=== PATIENT | male | born 1950 | race Caucasian/White ===

== ENCOUNTER 2016-11-21 10:42 | Day surgery (SDC) | payer MEDICARE, OTHER ==
--- NOTE | 2016-11-21 06:22 | History and Physical Report ---
DATE: 11/21/2016. CHIEF COMPLAINT: This is a patient with a history of an intractable radiculitis. HISTORY OF PRESENT ILLNESS: He had a spinal cord stimulator implant on February 22, 2016. At that time everything appeared to be appropriate. Over the subsequent number of months, the patterns of stimulation shifted. Attempts at conservative reprogramming failed. X-ray confirmed possible lead migration. He is here for revision, repositioning, and possibly replacement of leads. PAST MEDICAL HISTORY: Headaches, asthmatic bronchitis, Parkinson's disease, reflux, degenerative arthritis. PAST SURGICAL HISTORY: Rotator cuff, temporomandibular joint, knee surgery, tendon repair, stimulator implant. MEDICATIONS ON ADMISSION: To be provided. ALLERGIES: Penicillin, Levaquin, morphine, Demerol. SOCIAL HISTORY: Caffeine. FAMILY HISTORY: Noncontributory. REVIEW OF SYSTEMS: The patient is appropriate and in no acute distress. The remainder of the systems review is noncontributory. PHYSICAL EXAMINATION: General: Height is 5 feet, 8 inches. Weight is 190 pounds. Vital Signs: Unavailable. HEENT: Within normal limits. Lungs: Clear. Heart: Regular rate and rhythm. Abdomen: Nontender. Musculoskeletal: The incisional sites posterior for the insertion of the leads and the generator are intact. Sensory sal are intact. Radicular pattern is midback and right lower extremity. Neurologic: Cranial nerves are intact. IMPRESSION: 1. INTRACTABLE LUMBAR RADICULITIS, ICD-10 CODE M54.16 AND M54.17. 2. SPINAL CORD STIMULATOR INTERNAL GENERATOR NONFUNCTIONAL. PLAN: The patient is here for revision of the system. This may require removal or simply replacing a lead or both leads. It was a complicated procedure previously. A dural puncture had been identified, and so we explained the potential risks and side effects including nerve root injury, spinal cord injury, dural puncture, and headache. We will consider this procedure to be outpatient, although an overnight stay will be evaluated. HAMMAD RENDON D.O. Date & Time JOB NUMBER: [id number] cc: Karen Dominguez
[~2016-11-21 10:42] MED LIST: ACETAMINOPHEN 1,000 MG/100 ML BTL IV ONE; CLINDAMYCIN 600MG/50ML PREMIX 600 MG/50 ML BAG IVPB ONE; FAMOTIDINE 20MG TABLET PO ONE; MECLIZINE 25 MG TABLET PO ONE; METOCLOPRAMIDE 10 MG TABLET PO ONE
[2016-11-21] MEDS ORDERED: LIDOCAINE 2% MDV (20MG/ML) 20ML VIAL IV ONE (14:00)
[2016-11-21] MEDS ORDERED: FENTANYL PF 100MCG/2ML VIAL IV ONE (14:00)
[2016-11-21] MEDS ORDERED: MIDAZOLAM HCL 2MG/2ML VIAL IV ONE (14:00)
[2016-11-21] MEDS ORDERED: PROPOFOL 10 MG/ML VIAL IV ONE (14:00)
[2016-11-21] MEDS ORDERED: CLINDAMYCIN 600MG/4 ML VIAL IVPB ONE (14:00)
[2016-11-21] MEDS ORDERED: LIDOCAINE 1% W/EPI 1:200,000 MPF 30ML SQ ONE (14:00)
[2016-11-21] MEDS ORDERED: HYDROMORPHONE HCL 2 MG/ML VIAL IV ONE (14:00)
[2016-11-21] MEDS ORDERED: BUPIVACAINE 0.5% W/EPI MPF 30 ML VIAL IVP ONE (14:00)
[2016-11-21] MEDS ORDERED: ACETAMINOPHEN 325 MG TAB PO PRN ×2 (15:17)
[2016-11-21] MEDS ORDERED: AL HYDROX/MAG HYDROX 30ML UD PO PRN (15:17)
[2016-11-21] MEDS ORDERED: HYDROCODONE/APAP 7.5/325MG TABLET PO PRN ×2 (15:17)
[2016-11-21] MEDS ORDERED: TEMAZEPAM 15 MG CAPSULE PO PRN ×2 (15:17)
[2016-11-21] MEDS ORDERED: METOCLOPRAMIDE 10 MG TABLET PO PRN (15:17)
[2016-11-21] MEDS ORDERED: HYDROMORPHONE HCL 1 MG/ML CPJ IM PRN (15:17)
[2016-11-21] MEDS ORDERED: SENNOSIDES/DOCUSATE SODIUM UD CAPSULE PO PRN ×2 (15:17)
[2016-11-21] MEDS ORDERED: DIPHENHYDRAMINE HCL 25 MG CAPSULE PO PRN ×2 (15:17)
[2016-11-21] MEDS ORDERED: METOCLOPRAMIDE HCL 10 MG/2 ML VIAL IVP PRN (15:17)
[2016-11-21] MEDS ORDERED: DIPHENHYDRAMINE HCL IV 50 MG/ML VIAL IVP PRN ×2 (15:17)
[2016-11-21] MEDS ORDERED: OXYCODONE/APAP 10MG-325MG TABLET PO PRN ×2 (15:17)
[2016-11-21] MEDS: LEVODOPA PO SCH ×3 (16:00→23:02)
[2016-11-21] MEDS: CARBIDOPA PO SCH ×3 (16:00→23:02)
[2016-11-21] MEDS: CARBIDOPA 25 MG PO SCH ×3 (16:05→21:52)
--- NOTE | 2016-11-21 16:16 | Operative Note - [facility]ro ---
"DATE OF SURGERY: 11/21/16 PREOPERATIVE DIAGNOSES: 1. INTRACTABLE LUMBAR RADICULITIS, ICD-10 CODE = M54.16 AND M54.17. 2. SPINAL CORD STIMULATOR, INTERNAL GENERATOR NONFUNCTIONAL WITH ELECTRODE FAILURE. OPERATION: 1. INCISION, SUBCUTANEOUS DISSECTION, AND REMOVAL OF ONE INDWELLING SPINAL CORD STIMULATOR. 2. INCISION, SUBCUTANEOUS DISSECTION, AND REMOVAL OF INTERNAL PULSE GENERATOR RIGHT POSTERIOR GLUTEAL MARGIN. 3. FLUOROSCOPICALLY-GUIDED EPIDURAL ACCESS WITH EPIMED CURVED ACCESS NEEDLE T12/ L1 WITH PLACEMENT OF SPINAL CORD STIMULATOR LEAD 1, A [employer] INFINION 16 WITH 16 ELECTRODES POSITIONED RIGHT T10. 4. COMPLEX PROGRAMMING LEAD 1, 20 MINUTES. 5. COMPLEX PROGRAMMING INDWELLING LEAD IDENTIFIED LEAD 2 PREVIOUSLY POSITIONED, 20 MINUTES. 6. REVISION, REPOSITION OF INDWELLING LEAD 2 REPOSITIONING 3.5 VERTEBRAL BODIES LOW LOWER THAN PREVIOUS POSITION. 7. REPEAT COMPLEX PROGRAMMING, 20 MINUTES, LEAD 2. 8. REVISION OF MIDLINE INCISION FOR LEADS, ANCHORING OF LEAD 1 AND RE-ANCHORING OF LEAD 2 TO SUPRASPINOUS FASCIA USING [employer] LOCKING ANCHOR. 9. REVISION RIGHT POSTERIOR/SUPERIOR GLUTEAL MARGIN FOR PLACEMENT OF GENERATOR IDENTIFIED BY [employer] PROGRAMMABLE RECHARGEABLE. 10. TUNNELING OF LEADS INTO GENERATOR POUCH, INTERFACE EACH LEAD WITH BIFURCATED EXTENSION. EACH BIFURCATED EXTENSION INTERFACED TO GENERATOR. 11. PLACEMENT OF GENERATOR INTO POUCH SECURING TO POSTERIOR FASCIA USING NONABSORBABLE SUTURE. PLACEMENT OF LEADS INTO POUCH. CLOSURE OF BOTH INCISIONS VICRYL FOR FASCIA, RUNNING SUBCUTICULAR VICRYL FOR SKIN. DERMABOND CLOSURE. 12. COMPLEX PROGRAMMING INTERNAL GENERATOR, RECOVERY ROOM 20 MINUTES. SURGEON: HAMMAD RENDON D.O. ANESTHESIA: LOCAL SEDATION. ANESTHESIA PROVIDER: DEQUAN VELA CRNA. INDICATION: This patient presents with a history of intractable lumbar radiculitis and a two lead [employer] stimulator with internal generator. Over the last number of months, complete electrode failure of one of the two leads and questionable malfunction of connections, extensions, and generator. He is here for revision, possible removal. PROCEDURE: Intravenous line, vital sign monitoring, IV sedation, prepped and draped sterile technique, patient position prone. Sterile prep. Sterile technique. Under imaging, the posterior gluteal margin pouch on the right for the generator infiltrated, incision made, and subcutaneous dissection was conducted to the generator. The generator and its connections, bifurcated extensions, were then removed from the pouch. The generator was and tested. There appeared to be some difficulty with respect to repositioning the extensions back into the generator. The generator was then removed from the field. The extensions were tested. There appeared to be a malfunction with respect to one of the extensions. It was removed. The midline incision for the leads was infiltrated, incision made, and subcutaneous dissection was conducted to the anchor for the two leads. Both leads were then interfaced with an external connection and complex programming was started. Immediately noticed left lead failure, right lead functionality but out of position. The left lead was then removed using curved access Epimed needle with [id number] at T12/1. The epidural space was accessed. At that point, after the initial lead had been removed, spinal cord stimulator identified as lead 1, a [place] [employer] 16 with 16 electrodes, positioned through the needle into the epidural space left of the midline and taken to T10. The indwelling lead in place to the right. Complex programming of lead 1 newly positioned was then performed over 20 minutes establishing stimulation to the patient's left side. Programming of lead 2, the indwelling lead, was then started over 20 minutes and produced stimulation patterns completely out of the area to the left. At that point, the anchoring suture was removed on the indwelling lead and the position was revised retracting the lead down approximately three vertebral bodies paralleling the indwelling lead with both leads now upper electrode at T10. Complex programming of the indwelling lead identified as lead 2 was then performed over 20 minutes in conjunction with lead 1 re-establishing stimulation of pain control to all of the appropriate areas; patient indicating we had the area. He was given the option to implant or remove; he opted to implant. He re-sedated. Skin around the incision was then infiltrated and the incision was revised and enlarged to accommodate the new position of the leads and the needle. Each of the leads was then re-anchored to the supraspinous fascia using a [employer] [place] and nonabsorbable suture. The pouch at the right posterior gluteal margin was then revised. Antibiotic irrigation. Bovie for hemostasis. A tunneling tool was then used to carry the two leads into the generator pouch and each lead was interfaced with a new bifurcated extension. Each bifurcated extension was then interfaced with the new generator. Antibiotic irrigation and Bovie for hemostasis. The generator was then placed into the pouch and secured to the fascia with nonabsorbable suture. The two leads were coiled and placed into their own pouch and then both incisions were closed Vicryl for fascia, running subcuticular Vicryl for skin. A Dermabond closure was then placed over both incisions to approximate the wound. He was transported to the Recovery Room, stable, showing no side-effects from the procedure or the sedation. Because of the amount of surgery, he will be kept overnight for observation and discharged in the morning. DISCHARGE INSTRUCTIONS IN THE MORNIN. The sites will remain clean and dry although the Dermabond will allow showering but not for 24-48 hours. 2. Standard medications resumed including Levaquin, the antibiotic, 500 mg once a day for 14 days. 3. The office will contact the patient in the next two days to set up an appointment at 5-7 days to evaluate the site. Until then, he is to keep his activities low. No bend, lift, push, or pull. Limit activity until he is evaluated. All other instructions provided, numbers to contact with problems given. He will then be discharged. cc: Dr. Brown JOB NUMBER: [id number] MTDD"
[2016-11-21] MEDS: MORPHINE SULFATE 15 MG TABLET PO SCH ×2 (16:42→22:36)
[2016-11-21] MEDS: RINGERS SOLUTION,LACTATED 1,000 ML IV PRN ×2 (16:56→23:30)
[2016-11-21] MEDS: HYDROMORPHONE HCL 2 MG/ML VIAL IM PRN (20:58)
[2016-11-21] MEDS: CLINDAMYCIN 600MG/50ML PREMIX 600 MG/50 ML BAG IVPB SCH (21:55)
[2016-11-21] MEDS: 0.9 % SODIUM CHLORIDE 10ML SYR IVP SCH (23:23)
[2016-11-22] MEDS: MORPHINE SULFATE 15 MG TABLET PO SCH ×2 (01:47→08:01)
[2016-11-22] MEDS: CLINDAMYCIN 600MG/50ML PREMIX 600 MG/50 ML BAG IVPB SCH ×2 (03:41→09:56)
[2016-11-22] MEDS: HYDROMORPHONE HCL 2 MG/ML VIAL IM PRN (05:35)
[2016-11-22] MEDS ORDERED: PANTOPRAZOLE SODIUM 40 MG TABLET PO SCH (07:00)
[2016-11-22] MEDS ORDERED: PATIENT OWN MED: HYDROCHLOROTHIAZIDE 25 MG PO SCH (10:00)
[2016-11-22] MEDS ORDERED: PATIENT OWN MED: ALFUZOSIN 10 MG PO SCH (10:00)
[2016-11-22] MEDS: CARBIDOPA PO SCH (10:02)
[2016-11-22] MEDS: LEVODOPA PO SCH (10:02)
[2016-11-22] MEDS: CARBIDOPA 25 MG PO SCH (10:04)
[2016-11-22] MEDS: 0.9 % SODIUM CHLORIDE 10ML SYR IVP SCH (10:06)
--- NOTE | 2016-11-22 17:18 | RADIOLOGY REPORT ---
EXAM: SPINE, 1 VIEW HISTORY: STIMULATOR REVISION. TECHNIQUE: Two-view lumbar spine. COMPARISON: Spine radiograph 02/22/2016. FINDINGS: Two stimulator leads overlie the lower thoracic spine projecting over the mid T11 level. Mild dextroconvex curvature of the thoracolumbar spine with at least moderate multilevel disc disease. IMPRESSION: STIMULATOR LEADS OVERLIE THE MID T11 LEVEL. MULTILEVEL DEGENERATIVE CHANGE OF THE THORACOLUMBAR SPINE. JOB NUMBER: [id number] MTDD
== END 2016-11-22 11:00 | disposition home or self-care (01) ==
LOC: SUR 10:42 → MEDSURG 15:35 → SUR 11-22 11:00
PROVIDERS: ATTEND Pain Medicine Interventional Pain Medicine
DX: T85.890A Other specified complication of nervous system prosthetic devices, implants and grafts, initial encounter (principal); E11.9 Type 2 diabetes mellitus without complications; Z79.4 Long term (current) use of insulin; Z79.84 Long term (current) use of oral hypoglycemic drugs
CPT/HCPCS: 63663; 63685; 00300; 95972; 72020; 94762; J3010; J1170 ×2; J7120

== ENCOUNTER 2018-01-08 12:52 | Day surgery (SDC) | payer MEDICARE, OTHER ==
--- NOTE | 2018-01-08 06:53 | History and Physical Report ---
DATE: 01/08/2018. CHIEF COMPLAINT AND HISTORY OF CHIEF COMPLAINT: This patient presents with a history of an intractable lumbar radiculopathy. He had a spinal cord stimulator implant placed on 11/21/2016. Although the system has been working, there have been certain components of his pain which we have been unable to control. Since that time, [employer], his stimulator transportation superintendent, has released a new generator which greatly enhances the functionality of the system. It provides more waveform options, deeper penetration, as well as greater extension of stimulation patterns throughout the nervous system. He is here for a battery change without changing electrodes to improve the overall function of the system. PAST MEDICAL HISTORY: Headaches, asthmatic bronchitis, Parkinson's disease, reflux, degenerative arthritis, and right hip infection. PAST SURGICAL HISTORY: Rotator cuff, temporomandibular joint surgery, knee surgery, tendon repair, stimulator implant. MEDICATIONS ON ADMISSION: To be provided. ALLERGIES: Penicillin, Levaquin, morphine, Demerol. SOCIAL HISTORY: Caffeine. FAMILY HISTORY: Noncontributory. REVIEW OF SYSTEMS: The patient is appropriate and in no acute distress. The remainder of the systems review is noncontributory. PHYSICAL EXAMINATION: General: Height and weight unavailable. Vital Signs: Not available. HEENT: Within normal limits. Lungs: Clear. Heart: Regular rate and rhythm. Abdomen: Nontender. Musculoskeletal: Examination of the musculoskeletal system shows the incisions for the system to be intact. The generator site at the right posterior gluteal margin is also intact. His lower extremity functionality seems to be intact. He does have Parkinson's disease and has a tremor. Neurologic: Cranial nerves are intact. IMPRESSION: 1. INTRACTABLE LUMBAR RADICULITIS, ICD-10 CODE M54.16 AND M54.17. 2. SPINAL CORD STIMULATOR INTERNAL GENERATOR. PLAN: The patient is here for generator change on an outpatient basis. He has been provided with the appropriate clearances. Because of his problems with hip infection, it is felt that this is the optimal time to replace the generator. The procedure will be outpatient; an overnight stay will not be necessary. The potential risks, side effects, and complications have all been reviewed. JOB NUMBER: [id number] cc: Karen Dominguez
[~2018-01-08 12:52] MED LIST changes: -ACETAMINOPHEN 1,000 MG/100 ML BTL IV ONE; -FAMOTIDINE 20MG TABLET PO ONE; -MECLIZINE 25 MG TABLET PO ONE; -METOCLOPRAMIDE 10 MG TABLET PO ONE; +VANCOMYCIN HCL 1,000 MG in DEXTROSE 5 % IN WATER 250 ML IVPB ONE
[2018-01-08] MEDS ORDERED: CLINDAMYCIN (PEDIATRIC DOSING) 150 MG/ML VIAL IVPB ONE (12:53)
[2018-01-08] MEDS ORDERED: MIDAZOLAM HCL 2MG/2ML VIAL IV ONE (12:53)
[2018-01-08] MEDS ORDERED: PROPOFOL 10 MG/ML VIAL IV ONE (12:53)
[2018-01-08] MEDS ORDERED: *PACU ONLY* KETAMINE HCL 10 MG/ML (20ML) VIAL IV ONE (12:53)
[2018-01-08] MEDS ORDERED: BUPIVACAINE 0.5% W/EPI MPF 30 ML VIAL IVP ONE (12:53)
[2018-01-08] MEDS ORDERED: LIDOCAINE 1% W/EPI 1:200,000 MPF 30ML SQ ONE (12:53)
[2018-01-08] MEDS ORDERED: FENTANYL PF 100MCG/2ML VIAL IV ONE (12:53)
--- NOTE | 2018-01-09 22:07 | Operative Note - [facility]ro ---
DATE OF SURGERY: 01/08/18. PREOPERATIVE DIAGNOSES: 1. LUMBAR RADICULOPATHY, ICD-10 CODE = M54.16 AND M54.17. 2. SPINAL CORD STIMULATOR WITH INTERNAL GENERATOR. SURGERY: FLUOROSCOPIC-GUIDED INCISION, SUBCUTANEOUS DISSECTION, REMOVAL AND REPLACEMENT OF INTERNAL PULSE GENERATOR WITH A [employer] WAVEWRITER REPROGRAMMABLE, RECHARGEABLE. SURGEON: HAMMAD RENDON D.O. ANESTHESIA: LOCAL SEDATION. ANESTHESIA PROVIDER: DELIA AMADOR CRNA. INDICATIONS: This patient presents with a history of intractable lumbar radiculopathy managed by spinal cord stimulation. There has been over the last number of months an increase in breakthrough pain in the area of the patient's hip and leg. Attempts at reprogramming have failed to capture this region. He was given the option to remove the system or replace it with a new generator identified as a WaveWriter, which has increased waveform programmability options improving pain control as well nervous system stimulation patterns. He opted to replace the generator. SURGERY: Intravenous line, vital sign monitoring, IV sedation, prepped and draped sterile technique. Patient position prone. Sterile prep at the right posterior gluteal margin generator site. Under imaging, skin infiltrated, incision made, and subcutaneous dissection was conducted to the pouch. The pouch was opened and generator exteriorized. The generator was from the internal leads. The new generator WaveWriter technology put onto the field and interfaced to the indwelling leads. Antibiotic irrigation and Bovie for hemostasis. A securing suture was then placed onto the generator in the pouch securing the generator into the pouch. Antibiotic irrigation and Bovie for hemostasis. The incision was then closed using STRATAFIX suture, a 2-0 for fascia and a 3-0 for subcuticular closure. Dermabond closure was then placed over the wound. He was transported to the Recovery Room stable, no side effects from the procedure or the sedation. When awake and alert, complex programming of the generator performed over 20 minutes. He was discharged to home stable. DISCHARGE INSTRUCTIONS: 1. The site will remain clean and dry. Although he may shower in 24 hours, he cannot sit in water. 2. Standard medications resumed including the Clindamycin, the antibiotic 600 mg three times a day for 14 days. He will continue with the intravenous antibiotics, which have been ordered through Orthopedics for his right hip wound. 3. The office will contact the patient at home in the next 24 to 48 hours to set up an appointment in 7 to 10 days to evaluate the site. Until then, the site should stay clean and dry. All other instructions provided, numbers to contact if problems given. He was then discharged. cc: Dr. Akin Brown JOB NUMBER: [id number] MTDD
== END 2018-01-08 15:45 | disposition home or self-care (01) ==
LOC: SUR 12:52
PROVIDERS: ATTEND Pain Medicine Interventional Pain Medicine
DX: M54.16 Radiculopathy, lumbar region (principal); M54.17 Radiculopathy, lumbosacral region; G20 Parkinson's disease; N40.0 Benign prostatic hyperplasia without lower urinary tract symptoms; K21.9 Gastro-esophageal reflux disease without esophagitis; E11.9 Type 2 diabetes mellitus without complications; Z79.4 Long term (current) use of insulin; Z79.01 Long term (current) use of anticoagulants
CPT/HCPCS: 63685; 00300; 95972; J3370; J3010; C1820; J7060